=== PATIENT | female | born 1985 | race Caucasian/White ===

== ENCOUNTER 2017-01-20 09:58 | Day surgery (SDC) | payer SELFPAY ==
[2017-01-18 12:01] VITALS: BMI 22.3
[2017-01-20] MEDS ORDERED: BUPIVACAINE HCL/PF 2.5 MG/ML - 30 ML VIAL IJ ONE ×2 (11:45→19:10)
[2017-01-20] MEDS ORDERED: LIDOCAINE 1%-EPI 1:100,000 30 ML MDV IJ ONE (11:45)
[2017-01-20] MEDS ORDERED: GENTAMICIN SO4 80 MG/2 ML VIAL ONE (11:45)
[2017-01-20] MEDS ORDERED: ceFAZolin SODIUM 1 GM VIAL ONE ×2 (11:45→13:06)
[2017-01-20] MEDS ORDERED: GUM MASTIC/STORAX/MSAL/ALCOHOL 1 DRP DROPSBTL MC ONE (11:45)
[2017-01-20] MEDS ORDERED: MIDAZOLAM HCL 2 MG/2 ML SINGLE DOSE VIAL ONE ×2 (12:42→16:26)
[2017-01-20] MEDS ORDERED: SUCCINYLCHOLINE CHLORIDE 200 MG/10 ML VIAL ONE (12:42)
[2017-01-20] MEDS ORDERED: LIDOCAINE HCL/PF 2% SDV 5ML VIAL ONE (12:44)
[2017-01-20] MEDS ORDERED: ONDANSETRON 4 MG/2 ML VIAL ONE (13:06)
[2017-01-20] MEDS ORDERED: DEXAMETHASONE SOD PHOSPHATE 4 MG/1 ML VIAL ONE (13:06)
[2017-01-20] MEDS ORDERED: PROPOFOL 20 ML ONE (14:17)
[2017-01-20] MEDS ORDERED: ONDANSETRON 4 MG/2 ML VIAL IVPUSH PRN (16:41)
[2017-01-20] MEDS ORDERED: PROMETHAZINE HCL 25 MG/1 ML VIAL IVPUSH PRN (16:41)
[2017-01-20] MEDS ORDERED: oxyCODONE HCL 5 MG TABLET PO PRN ×2 (16:41)
[2017-01-20] MEDS ORDERED: LACTATED RINGERS SOLUTION 1,000 ML IV SCH (16:45)
[2017-01-20] MEDS ORDERED: oxyCODONE HCL 5 MG TABLET ONE ×2 (18:02→18:24)
[2017-01-20] MEDS ORDERED: oxyCODONE HCL 5 MG TABLET PO ONE (18:25)
[2017-01-20 19:52] VITALS: PULSE 75
[2017-01-20 19:59] VITALS: BP 109/61; TEMP 98
--- NOTE | 2017-01-22 09:07 | PATH ---
Surgical Pathology Report Patient Name: MILAGROS THOMAS Med. Rec. #: [id number] /Age/Gender: 1985 (Age: 31) / F Account: [id number] Location: [facility] Taken: 01/20/2017 Received: 01/20/2017 Reported: 01/22/2017 Physicians: Michelle Tamayo M.D. 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 Electronically Signed Wei Kinsey M.D. Gross Description Received fresh labeled "bilateral breast implants," are 2 clear, rubbery breast implants averaging 14 cm in diameter and 3 cm in depth. No soft tissue is present. No sections are submitted, gross only. /01/21/2017 [facility]01/21/2017
== END 2017-01-20 19:45 | disposition home or self-care (01) ==
LOC: FASU 09:58
PROVIDERS: ATTEND Surgery
PROC: 0HPU0JZ Removal of Synthetic Substitute from Left Breast, Open Approach (ICD-10-PCS; 2017-01-20)
PROC: 0HPT0JZ Removal of Synthetic Substitute from Right Breast, Open Approach (ICD-10-PCS; 2017-01-20)
PROC: 0HUU0JZ Supplement Left Breast with Synthetic Substitute, Open Approach (ICD-10-PCS; 2017-01-20)
PROC: 0HUT0JZ Supplement Right Breast with Synthetic Substitute, Open Approach (ICD-10-PCS; 2017-01-20)
PROC: 0HNV0ZZ Release Bilateral Breast, Open Approach (ICD-10-PCS; 2017-01-20)
PROC: 0HUV0JZ Supplement Bilateral Breast with Synthetic Substitute, Open Approach (ICD-10-PCS; principal; 2017-01-20 13:22)
DX: Z41.1 Encounter for cosmetic surgery (principal)
CPT/HCPCS: 84703; 88300-TC; 94760